=== PATIENT | female | born 1950 | race Caucasian/White ===

== ENCOUNTER 2016-06-13 08:28 | Outpatient (CLI) | payer OTHER ==
--- NOTE | 2016-06-13 12:45 | DIAGNOSTIC IMAGING REPORT ---
PROCEDURE: US RENAL VASCULAR - BILATERAL INDICATION: HYPERTENSION TECHNIQUE: Valderrama scale and color Doppler sonographic images of the kidneys were performed. Spectral waveform analysis was obtained of the renal arteries, intrarenal vessels, and aorta, including renal resistive indices and calculation of renal to aortic ratios. COMPARISON: None. FINDINGS: AORTIC VELOCITY: 33 cm/sec. RIGHT KIDNEY: Right kidney is of normal size (10.1 x 5.3 x 4.2 cm) with normal morphology. Normal cortical thickness and echogenicity. RIGHT RENAL ARTERY VELOCITIES: Right renal artery velocities are normal (proximal 64 cm/s; mid 56 cm/s; distal 60 cm/s). Spectral waveform analysis demonstrates appropriate systolic acceleration and forward diastolic flow in all segments of the right renal artery. RIGHT RENAL AORTIC RATIO: Right renal to aortic ratios are normal (proximal 1.9, mid 1.7, distal 1.8). RIGHT RENAL RESISTIVE INDICES: Right renal resistive indices are normal (upper pole 0.73, midpole 0.72, inferior pole 0.71). 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 LEFT KIDNEY: Left kidney is of normal size (10.6 x 4.9 x 5.7 cm) with normal morphology. Normal cortical thickness and echogenicity. LEFT RENAL ARTERY VELOCITIES: Left renal artery velocities are normal (proximal 69 cm/s; mid 85 cm/s; distal 56 cm/s).Spectral waveform analysis demonstrates appropriate systolic acceleration and forward diastolic flow in all segments of the left renal artery. LEFT RENAL AORTIC RATIO: Left renal to aortic ratios are normal (proximal 2.1, mid 2.6, distal 1.7). 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 There is maintenance of forward diastolic flow in all segments. IMPRESSION: 1. No sonographic evidence of focal renal artery stenosis. 2. Normal renal artery wave forms by spectral Doppler analysis. 3. 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 This may indicate diffuse intrarenal/small vessel narrowing. Renal parenchyma does not demonstrate expected changes of chronic medical renal disease. 4. Clinical follow-up of renal function is recommended.
== END 2016-06-13 23:00 ==
LOC: LAB SRH 08:28 → US SRH 08:28
DX: I10 Essential (primary) hypertension (principal)
CPT/HCPCS: 90074; 97030; 97680